=== PATIENT | female | born 1995 | race Hispanic/Latino ===

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

== ENCOUNTER 2023-02-06 10:45 | Emergency (ER) | payer OTHER ==
[2023-02-06] VITALS (14 sets, daily range): BP systolic 83–108; BP diastolic 59–74
[~2023-02-06] VITALS: Ht 160 cm; Wt 66.8 kg
[2023-02-06 12:21] LABS: BASO% 0.6 % (0-3); EOS% 0.6 % (0-8); LYMPH% 24.9 % (15-41); MEAN CORPUSCULAR HGB 24.9 pG CALC (26.0-32.0); MEAN CORPUSCULAR HGB CONC 30.7 g/dL CAL (32.0-36.0); MONO% 9.8 % (2-13); NEUT# 2.03 thou/uL (2.00-7.15); NEUT% 64.1 % (42-76); RED BLOOD COUNT 3.65 mill/uL (4.20-5.60); RED CELL DISTRI WIDTH 15.6 % (11.5-15.5)
[2023-02-06 12:30] LABS: HEMATOCRIT 29.6 % (37.0-47.0); HEMOGLOBIN 9.1 g/dl (12.0-16.0); MEAN CELL VOLUME 81.1 fL CALC (80.0-100.0)
[2023-02-06 12:43] LABS: ALKALINE PHOSPHATASE 65 u/l (38-126); ANION GAP 13 (6-22 (CALC)); BILIRUBIN, TOTAL 0.7 mg/dL (0.02-1.3); CARBON DIOXIDE 23 mmol/l (22-30); CHLORIDE 105 mmol/l (95-108); CREATININE 0.6 mg/dL (0.5-1.0); GFR FOR AFR.AMER. > 60 ML/MIN (>=60 (CALC)); GFR OTHER RACES > 60 ML/MIN (>=60 (CALC)); POTASSIUM 4.1 mmol/l (3.5-5.1); SGOT/AST 25 u/l (14-36); SODIUM 137 mmol/l (137-146); TOTAL PROTEIN 7.4 g/dL (6.3-8.2)
[2023-02-06 12:49] LABS: ALBUMIN 3.3 g/dL (3.2-5.0); BUN 4 mg/dL (7-17); BUN/CREATININE RATIO 7 (12-20 (CALC))
[2023-02-06] MEDS ORDERED: PREDNISONE50 MG PO (14:31)
[2023-02-06] MEDS ORDERED: CEPHALEXIN500 M1 PO (14:31)
[2023-02-06] MEDS ORDERED: ALL DAY10 MG PO (14:31)
== END 2023-02-06 14:45 | disposition home or self-care (01) ==
LOC: ED 10:45
PROVIDERS: Family Medicine
DX: R21 Rash and other nonspecific skin eruption (principal); D64.9 Anemia, unspecified

== ENCOUNTER 2023-04-09 12:38 | Emergency (ER) | payer OTHER ==
[2023-04-09] VITALS (10 sets, daily range): BP systolic 104–116; BP diastolic 62–79
[~2023-04-09] VITALS: Ht 160 cm; Wt 63.6 kg
[~2023-04-09 12:38] MED LIST changes: +ALL DAY10 MG PO; +CEPHALEXIN500 M1 PO; +PREDNISONE50 MG PO
[2023-04-09 13:57] LABS: BASO% 0.3 % (0-3); EOS% 2.9 % (0-8); HEMOGLOBIN 9.6 g/dl (12.0-16.0); IMMATURE GRANULOCYTES 0.3 % (0.0-5.0); LYMPH% 30.1 % (15-41); MEAN CELL VOLUME 82.9 fL CALC (80.0-100.0); MEAN CORPUSCULAR HGB 25.7 pG CALC (26.0-32.0); MONO% 8.8 % (2-13); NEUT# 1.76 thou/uL (2.00-7.15); NEUT% 57.6 % (42-76); RED BLOOD COUNT 3.74 mill/uL (4.20-5.60); RED CELL DISTRI WIDTH 18.5 % (11.5-15.5)
[2023-04-09 14:05] LABS: URINE BILIRUBIN - DIPSTICK Negative (NEGATIVE); URINE BLOOD DIPSTICK Large (NEGATIVE); URINE GLUCOSE - DIPSTICK Negative (NEGATIVE); URINE KETONE Negative (NEGATIVE); URINE LEUK ESTERASE Negative (NEGATIVE); URINE NITRITE - DIPSTICK Negative (Negative); URINE PH 5.5 (4.5-8.0); URINE PROTEIN - DIPSTICK 100 mg/dL (NEG-TRACE); URINE UROBILINOGEN - DIPSTICK 0.2 E.U./dL (0.2)
[2023-04-09 14:10] LABS: URINE COLOR Yellow
[2023-04-09 14:19] LABS: URINE SQUAMOUS EPITHELIAL CELL MODERATE EPI/hpf (0-FEW)
[2023-04-09 14:20] LABS: URINE BACTERIA MODERATE hpf
[2023-04-09 14:21] LABS: URINE HYALINE CAST FEW lpf (NONE-RARE)
[2023-04-09 14:31] LABS: ALBUMIN 3.7 g/dL (3.2-5.0); ALKALINE PHOSPHATASE 78 u/l (38-126); ANION GAP 15 (6-22 (CALC)); BILIRUBIN, TOTAL 0.8 mg/dL (0.02-1.3); BUN 6 mg/dL (7-17); BUN/CREATININE RATIO 9 (12-20 (CALC)); CARBON DIOXIDE 21 mmol/l (22-30); CHLORIDE 106 mmol/l (95-108); CREATININE 0.6 mg/dL (0.5-1.0); GFR FOR AFR.AMER. > 60 ML/MIN (>=60 (CALC)); GFR OTHER RACES > 60 ML/MIN (>=60 (CALC)); POTASSIUM 3.5 mmol/l (3.5-5.1); SGOT/AST 19 u/l (14-36); SODIUM 139 mmol/l (137-146); TOTAL PROTEIN 7.5 g/dL (6.3-8.2)
[2023-04-09] MEDS ORDERED: OMNICEF300 MG PO (16:46)
== END 2023-04-09 16:05 | disposition home or self-care (01) ==
LOC: ED 12:38
PROVIDERS: Family Medicine
DX: M94.0 Chondrocostal junction syndrome [Tietze] (principal); N39.0 Urinary tract infection, site not specified; Z20.822 Contact with and (suspected) exposure to COVID-19; Z87.74 Personal history of (corrected) congenital malformations of heart and circulatory system